=== PATIENT | female | born 1985 | race Caucasian/White ===

== ENCOUNTER 2021-09-30 08:46 | Day surgery (SDC) | payer OTHER ==
[2021-09-30] MEDS ORDERED: VANCOMYCIN 1,000 MG VIAL (RESTRICTED TO ID ONLY) ONE (09:02)
[2021-09-30 09:15] VITALS: BMI 40.3
[2021-09-30] MEDS ORDERED: MIDAZOLAM HCL 2 MG/2 ML SINGLE DOSE VIAL ONE ×5 (10:14→12:20)
[2021-09-30] MEDS ORDERED: PROPOFOL 20 ML ONE ×3 (10:14→13:08)
[2021-09-30] MEDS ORDERED: BUPIVACAINE LIPOSOME/PF (EXPAREL) 266 MG/20 ML VIAL ONE (11:07)
[2021-09-30] MEDS ORDERED: BUPIVACAINE HCL/PF 0.5% (5 MG/ML) 30 ML VIAL IJ ONE (11:07)
[2021-09-30] MEDS ORDERED: BUPIVACAINE HCL 50 ML ONE (11:44)
[2021-09-30] MEDS ORDERED: DEXAMETHASONE SOD PHOSPHATE 4 MG/1 ML VIAL ONE (12:41)
[2021-09-30] MEDS ORDERED: ceFAZolin SODIUM 1 GM VIAL ONE (12:41)
[2021-09-30] MEDS ORDERED: TRANEXAMIC ACID 1000 MG/10 ML VIAL ONE (12:41)
[2021-09-30] MEDS ORDERED: PHENYLEPHRINE HCL 10 MG/1 ML SINGLE DOSE VIAL ONE (12:41)
[2021-09-30] MEDS ORDERED: KETOROLAC TROMETHAMINE 30 MG/1 ML VIAL ONE (12:41)
[2021-09-30] MEDS ORDERED: SODIUM CHLORIDE 0.9% P/F 10 ML VIAL IJ ONE (12:41)
[2021-09-30] MEDS ORDERED: ONDANSETRON 4 MG/2 ML VIAL ONE (12:41)
[2021-09-30] MEDS ORDERED: ONDANSETRON 4 MG/2 ML VIAL IVPUSH PRN (13:55)
[2021-09-30] MEDS ORDERED: oxyCODONE HCL 5 MG TABLET PO PRN (13:55)
[2021-09-30] MEDS ORDERED: ACETAMINOPHEN 1000 MG/100 ML BAG IVPB ONE (13:56)
[2021-09-30] MEDS ORDERED: LACTATED RINGERS SOLUTION 1,000 ML IV SCH (14:00)
[2021-09-30 19:00] VITALS: BP 130/72; PULSE 51; TEMP 97.4
== END 2021-09-30 19:00 | disposition home or self-care (01) ==
LOC: FASU 08:46
PROVIDERS: ATTEND Orthopaedic Surgery
PROC: 0MRP47Z Replacement of Left Knee Bursa and Ligament with Autologous Tissue Substitute, Percutaneous Endoscopic Approach (ICD-10-PCS; principal; 2021-09-30 12:22)
DX: M23.612 Other spontaneous disruption of anterior cruciate ligament of left knee (principal); M23.52 Chronic instability of knee, left knee
CPT/HCPCS: 84703; 94760